=== PATIENT | male | born 1945 ===

== ENCOUNTER 2017-11-10 08:02 | Outpatient (CLI) | payer OTHER ==
[~2017-11-10] VITALS: Ht 152.4 cm; Wt 72.6 kg
== END 2017-11-10 08:20 | disposition home or self-care (01) ==
LOC: OFIC 805 08:02
DX: H90.3 Sensorineural hearing loss, bilateral (principal); H61.23 Impacted cerumen, bilateral; H66.93 Otitis media, unspecified, bilateral

== ENCOUNTER 2018-05-01 09:51 | Outpatient (CLI) | payer OTHER | END 2018-05-01 15:00 | disposition home or self-care (01) | LOC: TOM 09:51 | DX: N32.81 Overactive bladder (principal) | CPT/HCPCS: 74178; Q9965 ==

== ENCOUNTER 2020-01-21 08:47 | Outpatient (CLI) | payer OTHER | END 2020-01-21 08:49 | disposition home or self-care (01) | LOC: RAD 08:47 | PROVIDERS: ATTEND Internal Medicine Cardiovascular Disease | DX: M12.811 Other specific arthropathies, not elsewhere classified, right shoulder (principal) ==

== ENCOUNTER → 2020-06-10 | Outpatient (CLI) | payer OTHER | END | disposition home or self-care (01) | LOC: MAMO-SONO 05-26 07:45 → SONOGRAMA 08:38 | PROVIDERS: ATTEND Internal Medicine Gastroenterology | DX: N20.0 Calculus of kidney (principal); R10.84 Generalized abdominal pain ==

== ENCOUNTER 2020-09-04 07:32 | Outpatient (CLI) | payer OTHER | END 2020-09-07 08:27 | disposition home or self-care (01) | LOC: TOM 07:32 | PROVIDERS: ATTEND Internal Medicine Gastroenterology | DX: R10.9 Unspecified abdominal pain (principal); R19.4 Change in bowel habit; R63.4 Abnormal weight loss | CPT/HCPCS: 74178; Q9958 ==

== ENCOUNTER → 2020-09-08 | Outpatient (CLI) | payer OTHER | END | disposition home or self-care (01) | LOC: RAD 10:32 | PROVIDERS: ATTEND Specialist | DX: R07.89 Other chest pain (principal); J18.0 Bronchopneumonia, unspecified organism ==

== ENCOUNTER 2020-09-29 07:28 | Outpatient (CLI) | payer OTHER | END 2020-09-29 08:19 | disposition home or self-care (01) | LOC: RAD 07:28 | DX: N20.0 Calculus of kidney (principal) ==